=== PATIENT | female | born 1965 | race American Indian/Alaskan Native ===

== ENCOUNTER 2019-06-10 12:17 | Emergency (ER) | payer SELFPAY ==
--- NOTE | 2019-06-10 12:56 | Emergency Department Report ---
Blank Doc - Documentation Documentation: This is a 54-year-old female that presents with SI. This initial assessment/diagnostic orders/clinical plan/treatment(s) is/are subject to change based on patient's health status, clinical progression and re- assessment by fellow clinical providers in the ED. Further treatment and workup at subsequent clinical providers discretion. Patient/guardians urged not to elope from the ED as their condition may be serious if not clinically assessed and managed. Initial orders include: 1- Patient sent to MAIN ED for further evaluation and treatment 2- custom marine canvas fabricator was notified to have patient be brought back [facility]. 3- RN was notified to keep patient as close range and observation until room available 4- Patient presents with substantial risk of imminent harm to self, appears to be so unable to care for his/her own physical health and safety as to create an imminently life-endangering crisis, and has committed/expressed life endangering crisis to self. Due to this and other complaints, patient is put on psych hold.
[2019-06-10 14:23] LABS: Hematocrit 38.5 % (30.3-42.9); Hemoglobin 12.9 gm/dl (10.1-14.3); Mean Corpuscular HGB Conc 33 % (30-34); Mean Corpuscular Volume 80 fl (79-97); Platelet Count 351 K/mm3 (140-440); Red Blood Count 4.79 M/mm3 (3.65-5.03)
[2019-06-10 14:29] LABS: Bilirubin,Urine NEG (Negative); Blood,Urine NEG (Negative); Color,Urine Yellow (Yellow); RBC,Urine < 1.0 /HPF (0.0-6.0); Urobilinogen,Urine < 2.0 mg/dL (<2.0)
[2019-06-10 14:33] LABS: Amphetamine Screen,Urine PRESUMPTIVE NEGATIVE; Benzodiazepines Screen,Urine PRESUMPTIVE NEGATIVE; Cannabinoid Screen,Urine PRESUMPTIVE NEGATIVE; Methadone Screen,Urine PRESUMPTIVE NEGATIVE
[2019-06-10 14:44] LABS: WBC,Urine < 1.0 /HPF (0.0-6.0)
[2019-06-10 14:48] LABS: Albumin 4.6 g/dL (3.9-5); BUN/Creatinine Ratio 14; Blood Urea Nitrogen 10 mg/dL (7-17); Calcium 9.8 mg/dL (8.4-10.2); Hemolysis Index 126
[2019-06-10 14:49] LABS: Cocaine Screen,Urine PRESUMPTIVE POSITIVE; Opiate Screen,Urine PRESUMPTIVE POSITIVE
[2019-06-10 14:58] LABS: Alanine Aminotransferase 19 units/L (7-56)
[2019-06-10 15:15] LABS: Basophils % (Manual) 0 % (0.0-1.8); Ovalocytes Few; Total Cells Counted 100
[2019-06-10 15:16] LABS: Platelet Estimate Consistent w Auto
--- NOTE | 2019-06-10 19:56 | Emergency Department Report ---
ED Psych HPI - General Chief Complaint: Psych Stated Complaint: DRUG ISSUES, THOUGHTS OF HURTING MYSELF Time Seen by Provider: 06/10/19 12:55 Source: patient Mode of arrival: Ambulatory - History of Present Illness Initial Comments: 54-year-old female with history of crack cocaine abuse, bipolar disorder presents to ED for drug rehab. Patient states she is from [place]. States she called [facility] so that she may be admitted for drug rehab. She states they instructed her to come to the ER for medical clearance. When asked at triage if she was having any suicidal thoughts, patient responded yes. However, patient states she had suicidal thoughts on yesterday, but no plan. Patient states this is because she missed 2 doses of her psych medication because she was doing crac k for 2 days. However, she reports taking her meds last night and today. Patient denies any suicidal or homicidal thoughts currently. Patient's and daughter have accompanied her to the ER. MD Complaint: other (drug rehab) - Related Data Allergies Allergy/AdvReac Type Severity Reaction Status Date / Time No Known Allergies Allergy Unverified 06/10/19 12:32 ED Review of Systems ROS: Stated complaint: DRUG ISSUES, THOUGHTS OF HURTING MYSELF Other details as noted in HPI ED Past Medical Hx - Past Medical History Previous Medical History?: Yes Hx Hypertension: Yes Hx Psychiatric Treatment: Yes (Bi polar) - Surgical History Past Surgical History?: No - Social History Smoking Status: Never Smoker Substance Use Type: None ED Physical Exam - General Limitations: No Limitations ED Course Vital Signs 06/10/19 06/10/19 12:55 20:03 Temperature 98.7 F 98.4 F Pulse Rate 99 H 96 H Respiratory 18 18 Rate Blood Pressure 119/65 Blood Pressure 119/76 [Left] O2 Sat by Pulse 96 98 Oximetry ED Medical Decision Making - Lab Data Result diagrams: 06/10/19 14:02 06/10/19 14:02 - Medical Decision Making Pt does not have any suicidal ideations. WHat she did have occurred on yesterday and pt states she did not have a plan. Now that she has taken her medication she feels better and wants help for her drug abuse. Pt is medically clear to be seen at [facility]. - Differential Diagnosis drug abuse Critical care attestation.: If time is entered above; I have spent that time in minutes in the direct care of this critically ill patient, excluding procedure time. ED Disposition Clinical Impression: Cocaine abuse, Medical clearance for psychiatric admission Disposition: [id number] TO HOME OR SELFCARE Is pt being admited?: No Condition: Stable Instructions: Polysubstance Abuse (ED), Medical Clearance for Substance Abuse T reatment (ED) Additional Instructions: Patient is medically clear for mental health admission. [facility] Time of Disposition: 20:00
[2019-06-10 20:05] VITALS: BP 119/76
== END 2019-06-10 20:05 | disposition home or self-care (01) ==
LOC: ED 12:17
DX: F32.89 Other specified depressive episodes (principal); F14.10 Cocaine abuse, uncomplicated; I10 Essential (primary) hypertension
CPT/HCPCS: 36415; 80053; 80307; 80320; 81001; 85007; 85025; 99283; G0480